=== PATIENT | male | born 1955 | race Two or more races ===

== ENCOUNTER 2024-04-19 17:23 | Inpatient (IN) | payer MEDICARE ==
[~2024-04-19] VITALS: Ht 170.2 cm; Wt 61.0 kg
--- NOTE | 2024-04-19 17:26 | NUR ---
[id number] FROM HOME FOR ALTERED MENTAL STATUS. PER FAMILY, PATIENT ALREADY NOT FEELING WELL YESTERDAY AND HAS COUGH, THIS AFTERNOON, WHEN FAMILY CHECKED, PATIENT WAS AWAKE BUT NOT RESPONDING TO QUESTIONS AND WAS HOT TO TOUCH. TO ER BED 8, HOOKED TO SPECIALTY FOOD PRODUCTS SUPERVISOR, NOTED SINUS TACHY, PATIENT AAOx0, EYES OPEN BUT NOT ANSWERING WHEN SPOKEN TO. CHANGED TO HOSP GOWN, COOLING MEASURES DONE. NOTED W RAC 20G IV PERPHERAL LINE, PATENT. DR HUYNH AT BEDSIDE
--- NOTE | 2024-04-19 17:28 | NUR ---
CALLED CODE SEPSIS
[2024-04-19] MEDS ORDERED: ACETAMINOPHEN 650 MG/SUPP.RECT RC ONE (17:31)
[2024-04-19] MEDS ORDERED: KETOROLAC TROMETHAMINE 15 MG/ML VIAL ONE (17:35)
[2024-04-19] MEDS: PIPERACILLIN /TAZOBACTAM 3.375 G in IV D5W 50 ML IV ONE (17:40)
[2024-04-19] MEDS: IV NS 0.9% 1,000 ML BAG IV ONE ×2 (17:40→20:00)
[2024-04-19 17:42] LABS: BASOPHILS # (AUTO) 0.1 K/uL (0.0-0.2); BASOPHILS % (AUTO) 0.7 % (0.0-2.0); EOSINOPHILS % (AUTO) 0.5 % (0.0-6.0); HEMATOCRIT 43 % (39-51); HEMOGLOBIN 14.5 g/dL (13.5-17.5); LYMPHOCYTES # (AUTO) 2.3 K/uL (0.8-4.8); LYMPHOCYTES % (AUTO) 29.8 % (20.0-44.0); MEAN CORPUSCULAR HEMOGLOBIN 30 PG (26.0-33.0); MEAN CORPUSCULAR HGB CONC 33 g/dl (31.0-36.0); MEAN CORPUSCULAR VOLUME 89 fL (80-96); MONOCYTES % (AUTO) 13.1 % (2.0-12.0); NEUTROPHILS # (AUTO) 4.3 K/uL (1.8-8.9); NEUTROPHILS % (AUTO) 55.9 % (43.0-81.0); PLATELET COUNT (AUTO) 144 K/uL (150-450); RED BLOOD CELL COUNT(AUTO) 4.84 MIL/uL (4.5-6.0); RED CELL DISTRIBUTION WIDTH 13.3 % (11.5-15.0); WHITE BLOOD COUNT (AUTO) 7.7 K/uL (4.3-11.0)
[2024-04-19] MEDS: ACETAMINOPHEN 650 MG/SUPP.RECT RC ONE (17:42)
[2024-04-19] MEDS: KETOROLAC TROMETHAMINE 15 MG/ML VIAL IV ONE (17:44)
--- NOTE | 2024-04-19 17:44 | NUR ---
EKG obtained at 1731.
--- NOTE | 2024-04-19 17:48 | NUR ---
MOVE SHEET SUBMITTED & CALLED FOR BED.
[2024-04-19 17:55] LABS: CALCIUM, SERUM 9.1 mg/dL (8.5-10.1); CARBON DIOXIDE 29 mmol/L (21-32); CHLORIDE 99 mmol/L (98-107); CREATININE 1.6 mg/dL (0.6-1.3); GLUCOSE 90 mg/dL (74-106); INR 1.2 (0.91-1.10); PARTIAL THROMBOPLASTIN TIME 26.2 SEC (24.3-34.3); POTASSIUM 4.2 mmol/L (3.5-5.1); PROTHROMBIN TIME 12.6 SECS (9.2-11.1); SODIUM SERUM 136 mmol/L (136-145); UREA NITROGEN, BLOOD 15 mg/dL (7-18)
[2024-04-19 18:02] LABS: ALANINE AMINOTRANSFERASE 18 U/L (12-78); ALBUMIN 3.8 g/dL (3.4-5.0); ALKALINE PHOSPHATASE 69 U/L (46-116); ASPARTATE AMINOTRANSFERASE 16 U/L (15-37); BILIRUBIN,DIRECT 0.1 mg/dL (0.0-0.2); BILIRUBIN,TOTAL 0.6 mg/dL (0.2-1.0); TOTAL PROTEIN, SERUM 7.3 g/dL (6.4-8.2)
--- NOTE | 2024-04-19 18:03 | NUR ---
PERSON TO CONTACT: [phone] (OCT-OCT)
--- NOTE | 2024-04-19 18:07 | NUR ---
urine collected and sent to the lab
[2024-04-19 18:13] LABS: LACTIC ACID 1.9 mmol/L (0.4-2.0)
--- NOTE | 2024-04-19 18:20 | NUR ---
DR HUYNH IN ROOM SPEAKING TO FAMILY
[2024-04-19] MEDS: VANCOMYCIN 1 GM in IV D5W 250 ML IV ONE (18:30)
[2024-04-19] MEDS ORDERED: HYDROCORTISONE SOD SUCCINATE 100 MG/2 ML VIAL ONE (18:39)
[2024-04-19] MEDS: HYDROCORTISONE SOD SUCCINATE 100 MG/2 ML VIAL IV ONE (18:45)
[2024-04-19] MEDS ORDERED: ROSU10TA2 PO (18:46)
[2024-04-19] MEDS ORDERED: HYDR5TAB13 PO (18:46)
--- NOTE | 2024-04-19 18:47 | NUR ---
WHEELED OUT VIA RNEY FOR CT SCAN
--- NOTE | 2024-04-19 19:25 | NUR ---
PATIENT AWAKE IN BED, ABLE TO ANSWER QUESTIONS. AAOx3. HOOKED TO MONITOR, WILL CONTINUE TO MONITOR ACCORDINGLY. ENDORSED TO REG RN
[2024-04-19 20:28] LABS: APPEARANCE,URINE CLEAR (CLEAR); BILIRUBIN,URINE NEGATIVE (NEGATIVE); BLOOD, URINE 2+ Ery/uL (NEGATIVE); COLOR,URINE YELLOW (YELLOW); KETONES,URINE NEGATIVE (NEGATIVE); LEUKOCYTE ESTERASE ,URINE NEGATIVE (NEGATIVE); NITRITE, URINE NEGATIVE (NEGATIVE); PROTEIN,URINE NEGATIVE (NEGATIVE); UGLUCOSE NEGATIVE (NEGATIVE); UROBILINOGEN,URINE 0.2 EU/dL (0.2)
[2024-04-19 20:33] LABS: RBC,URINE 21-50 /HPF (0-2); WBC,URINE 0-2 /HPF (0-3)
[2024-04-19 20:34] LABS: ADD URINE CULTURE NO; BACTERIA,URINE None seen /HPF (None Seen); SPERM,URINE Few /HPF (None Seen)
--- NOTE | 2024-04-19 21:25 | NUR ---
MRSA swab taken at 2123.
[2024-04-19] MEDS ORDERED: ONDANSETRON HCL/PF 4 MG/2 ML VIAL IVP PRN (21:30)
[2024-04-19] MEDS ORDERED: Z GUARD REMEDY 4 OZ OINT TP PRN (21:30)
[2024-04-19] MEDS ORDERED: ACETAMINOPHEN 325 MG TABLET PO PRN (21:30)
[2024-04-19] MEDS ORDERED: MAGNESIUM HYDROXIDE 30 ML UDC PO PRN (21:30)
[2024-04-19] MEDS ORDERED: MAG HYDROX/AL HYDROX/SIMETH 30 ML UDC PO PRN (21:30)
[2024-04-19] MEDS ORDERED: NOREPINEPHRINE 8MG/250ML RTU 250 ML IV ONE (21:45)
[2024-04-19] MEDS: NOREPINEPHRINE 8 MG in IV D5W 242 ML IV PRN (22:07)
--- NOTE | 2024-04-19 22:58 | NUR ---
REPORT GIVEN TO JENNY DANG ICU FOR CARMEN
--- NOTE | 2024-04-19 23:15 | NUR ---
transferred patient to ICU room 257
[2024-04-19 23:23] VITALS: BP 137/74; O2SAT 97
[2024-04-19 23:31] VITALS: BP 128/52; O2SAT 96
[2024-04-19 23:32] VITALS: BP 137/74; TEMP 97.2; O2SAT 97
[2024-04-19 23:45] VITALS: BP 102/55; O2SAT 99
--- NOTE | 2024-04-19 23:45 | NUR ---
INVENTORY ASSOCIATE AND DRIVERvariety saw operator Note Admitted this patient from ED via [facility] with dx of Sepsis, Gastroenteritis/Enterocolitis. Patient is awake, a/o x 4. On room air; tolerating well saturating 98%. Afebrile. Breathing adeqaute and nonlabored. With IV access on RAC 20g; patent and intact running with Levophed (32mcg/ml) at 0.2 mcg/kg/min; will titrate per protocol. SR on the surveillance sensor operator. Initial admission assessment done. Placed on contact isolation. Safety precautions initiated: HOB elevated >30 degrees, SR up x 2, bed in lowest locked position. Plan of care to continue.
[2024-04-19] MEDS: IV NS 0.9% 1,000 ML IV SCH (23:50)
[2024-04-19] MEDS ORDERED: PIPERACI/TAZO 3.375GM/D5W 50ML PB IV ONE (23:58)
[2024-04-20] VITALS (86 sets, daily range): BP systolic 78–157; BP diastolic 45–106; TEMP 97.2–98.1; O2SAT 93–100
[2024-04-20] MEDS ORDERED: PIPERACILLIN /TAZOBACTAM 3.375 G in IV D5W 50 ML IV SCH
[2024-04-20] MEDS: PIPERACILLIN /TAZOBACTAM 3.375 G in IV D5W 250 ML IV SCH (00:15)
[2024-04-20] MEDS ORDERED: IV NS 0.9% 250 ML IV PRN (00:30)
[2024-04-20] MEDS ORDERED: PIPERACI/TAZO 3.375GM/D5W 50ML PB IV ONE (04:26)
[2024-04-20 04:56] LABS: BASOPHILS % (AUTO) 0.3 % (0.0-2.0); HEMATOCRIT 42 % (39-51); HEMOGLOBIN 14.3 g/dL (13.5-17.5); LYMPHOCYTES # (AUTO) 0.9 K/uL (0.8-4.8); LYMPHOCYTES % (AUTO) 12.6 % (20.0-44.0); MEAN CORPUSCULAR HEMOGLOBIN 31 PG (26.0-33.0); MEAN CORPUSCULAR HGB CONC 34 g/dl (31.0-36.0); MEAN CORPUSCULAR VOLUME 90 fL (80-96); MONOCYTES # (AUTO) 0.4 K/uL (0.1-1.30); MONOCYTES % (AUTO) 5.2 % (2.0-12.0); NEUTROPHILS # (AUTO) 6.1 K/uL (1.8-8.9); NEUTROPHILS % (AUTO) 81.9 % (43.0-81.0); PLATELET COUNT (AUTO) 151 K/uL (150-450); RED CELL DISTRIBUTION WIDTH 13.2 % (11.5-15.0); WHITE BLOOD COUNT (AUTO) 7.5 K/uL (4.3-11.0)
[2024-04-20 05:06] LABS: CALCIUM, SERUM 8.2 mg/dL (8.5-10.1); CREATININE 1.3 mg/dL (0.6-1.3); MAGNESIUM 1.8 mg/dL (1.8-2.4); PHOSPHORUS 2.3 mg/dL (2.5-4.9); POTASSIUM 4.1 mmol/L (3.5-5.1)
--- NOTE | 2024-04-20 06:23 | NUR ---
RN Note Patient verbalized he's taking 17.5 mg of Hydrocortisone daily. Monty Joiner NP notified and made aware of patient's concern; with order to follow the dosage and timing that the patient have previously taking at home. Patient dosage is Hydrocortisone oral 10mg 6am, 5mg 11am and 2.5mg 4pm.
--- NOTE | 2024-04-20 07:20 | NUR ---
BLEACH CHLORINATOR Closing Note Patient in bed; awake, a/o x 4. Stable on room air. SR on the monitor. On vasopressor, Levophed at 0.06 mcg/kg/min. All due meds given as ordered. Contact and safety precautions maintained. Endorsed to ALTON Moreno for gela.
[2024-04-20] MEDS: VANCOMYCIN 750 MG in IV D5W 250 ML IV SCH (08:20)
[2024-04-20] MEDS: NOREPINEPHRINE 8 MG in IV D5W 242 ML IV PRN (08:20)
[2024-04-20] MEDS: ATORVASTATIN 40 MG TABLET PO SCH (08:27)
[2024-04-20] MEDS: HYDROCORTISONE 5 MG TABLET PO SCH ×3 (08:27→16:29)
[2024-04-20] MEDS: PANTOPRAZOLE 40 MG VIAL IV SCH (08:27)
--- NOTE | 2024-04-20 08:57 | NUR ---
ECHO TEST ONGOING, HR 40s to 70s for 2-3secs, BAILEY AWARE. PATIENT STABLE. WILL CONT. TO MONITOR
[2024-04-20] MEDS ORDERED: HYDROCORTISONE 5 MG TABLET PO SCH (09:00)
--- NOTE | 2024-04-20 09:40 | NUR ---
RN NOTES LEFT ARM ULTRASOUND PERFORMED TO IDENTIFY ADEQUATE VEIN FOR MIDLINE INSERTION. LEFT ARM PREPPED USING STERILE TECHNIQUE. POWERGLIDE 18G/10CM WAS INSERTED AT LEFT BASILIC VEIN WITH EASE, GOOD NON PULSATILE BLOOD RETURN AND SECURED WITH INTERLOCK DEVICE. DRESSED USING NORMAL STERILE FASHION. EACH PORT WAS ASPIRATED WITH VENOUS BLOOD AND EACH PORT WAS FLUSHED WITH 10ML OF NORMAL SALINE. PROCEDURE WELL TOLERATED BY THE PT. SUPERVISED BY DR.EM KILGORE PhD. ENDORSED TO BEDSIDE RN.
--- NOTE | 2024-04-20 10:52 | NUR ---
PER LAB STAFF-LULYSY "PREVIOUS STOOL FROM CORDUROY CUTTER OPERATOR INSUFFICIENT"; WILL COLLECT FOR ANY NEXT BM , ADITI-CHANTELL HIGGINS.
[2024-04-20] MEDS: PIPERACILLIN /TAZOBACTAM 3.375 G in IV D5W 100 ML IV SCH (11:11)
--- NOTE | 2024-04-20 12:33 | NUR ---
GARY HE AT BEDSIDE AWARE OF BM EPISODES.NO NEW ORDER MADE
[2024-04-20] MEDS: K PHOS NEUTRAL 250 MG TABLET PO ONE (16:29)
[2024-04-20] MEDS: ENSURE CLEAR 237 ML LIQUID (MIX BERRY) PO SCH (17:00)
[2024-04-20 17:05] LABS: CREATININE, URINE 32.2 MG/DL (30.0-125.0)
[2024-04-20 17:24] LABS: APPEARANCE,URINE CLEAR (CLEAR); BILIRUBIN,URINE NEGATIVE (NEGATIVE); BLOOD, URINE 1+ Ery/uL (NEGATIVE); COLOR,URINE YELLOW (YELLOW); KETONES,URINE NEGATIVE (NEGATIVE); LEUKOCYTE ESTERASE ,URINE NEGATIVE (NEGATIVE); NITRITE, URINE NEGATIVE (NEGATIVE); PROTEIN,URINE NEGATIVE (NEGATIVE); UGLUCOSE NEGATIVE (NEGATIVE)
--- NOTE | 2024-04-20 19:02 | NUR ---
ENDORSED TO ALTON LARA FOR CONT OF CARE
[2024-04-20 19:08] LABS: ADD URINE CULTURE NO; BACTERIA,URINE RARE /HPF (None Seen); MUCUS,URINE Few /LPF (None Seen); WBC,URINE 0-2 /HPF (0-3)
--- NOTE | 2024-04-20 19:30 | NUR ---
Norma Santizo PHARMACY BENEFIT MANAGER at bedside. Recommends to discontinue vancomycin; patient refused the IV antibiotics.
[2024-04-20 19:42] LABS: EOSINOPHIL,URINE None Seen
[2024-04-21] VITALS (36 sets, daily range): BP systolic 93–122; BP diastolic 31–84; TEMP 98–98.6; O2SAT 93–100
[2024-04-21 04:10] LABS: BASOPHILS % (AUTO) 0.3 % (0.0-2.0); HEMATOCRIT 32 % (39-51); HEMOGLOBIN 11.2 g/dL (13.5-17.5); LYMPHOCYTES # (AUTO) 1.4 K/uL (0.8-4.8); LYMPHOCYTES % (AUTO) 20.1 % (20.0-44.0); MEAN CORPUSCULAR HEMOGLOBIN 30 PG (26.0-33.0); MEAN CORPUSCULAR HGB CONC 35 g/dl (31.0-36.0); MEAN CORPUSCULAR VOLUME 88 fL (80-96); MONOCYTES # (AUTO) 0.6 K/uL (0.1-1.30); MONOCYTES % (AUTO) 8.6 % (2.0-12.0); NEUTROPHILS # (AUTO) 4.8 K/uL (1.8-8.9); PLATELET COUNT (AUTO) 119 K/uL (150-450); RED BLOOD CELL COUNT(AUTO) 3.68 MIL/uL (4.5-6.0); RED CELL DISTRIBUTION WIDTH 13.4 % (11.5-15.0); WHITE BLOOD COUNT (AUTO) 6.8 K/uL (4.3-11.0)
[2024-04-21] MEDS: HYDROCORTISONE 5 MG TABLET PO SCH (06:48)
[2024-04-21 06:55] LABS: CALCIUM, SERUM 7.5 mg/dL (8.5-10.1); POTASSIUM 2.9 mmol/L (3.5-5.1)
[2024-04-21 06:56] LABS: ALBUMIN 2.7 g/dL (3.4-5.0); BILIRUBIN,TOTAL 0.4 mg/dL (0.2-1.0); CREATININE 0.9 mg/dL (0.6-1.3); MAGNESIUM 1.6 mg/dL (1.8-2.4); PHOSPHORUS 2.4 mg/dL (2.5-4.9); TOTAL PROTEIN, SERUM 5.4 g/dL (6.4-8.2)
[2024-04-21] MEDS: PANTOPRAZOLE 40 MG TABLET.DR PO SCH (08:26)
[2024-04-21] MEDS: POTASSIUM CHLORIDE 20 MEQ POWDER PACKET PO SCH (08:26)
[2024-04-21] MEDS: IV NS 0.9% 1,000 ML IV PRN (09:47)
[2024-04-21] MEDS: NEUTRA PHOS 1 POWD.PACKET PO ONE (09:49)
[2024-04-21] MEDS: MAGNESIUM OXIDE 400 MG TABLET PO SCH (09:49)
[2024-04-21] MEDS ORDERED: POTASSIUM PHOSPHATE MM 7.5 MMOL in IV NS 0.9% 100 ML IV SCH (11:00)
--- NOTE | 2024-04-21 14:05 | NUR ---
PATIENT DOWNGRADED TO [facility] 3RD FLOOR/ ROOM 329-1; PER DR ORDER. TRANSFERRED SAFELY PER ACLS PROTOCOL, TAKEN BY WHEELCHAIR; PT ALERT/ ORIENTED X 4, ON RA, AMBULATORY, AFEBRILE, NOT IN DISTRESS OR PAIN. BEDSIDE REPORT GIVEN PER PROTOCOL.
--- NOTE | 2024-04-21 14:55 | NUR ---
[facility] NOTIFIED OF PT TRANSFER OUT OF ICU TO MED/SURG ROOM 329-1. SPOKE TO [facility] AT [phone] OPTION 3.
--- NOTE | 2024-04-21 15:30 | NUR ---
RN OPENING NOTES RECEIVED PATIENT FROM ICU. A/O X4.ABLE TO MAKE NEEDS KNOWN. NO COMPLAINS OF ANY PAIN OR DISCOMFORT AT THIS TIME, ON ROOM AIR SATURATING WELL, IV LINE ON BONNIE ML G18, RFA G20 NS AT 100ML, REMINDED PATIENT TO USE THE CALL LIGHTS WHEN NEEDED ASSISTANCE. FALL AND SAFETY MEASURES MAINTAINED: BED LOCKED AND IN LOWEST POSITION, HOB ELEVATED, BED ALARM ON.CALL LIGHT AND TABLE WITHIN EASY REACH, SIDE RAILS UP X 2, PLAN OF CARE ONGOING
--- NOTE | 2024-04-21 18:33 | NUR ---
RN CLOSING NOTES PATIENT AWAKE FROM BED. A/O X4.ABLE TO MAKE NEEDS KNOWN. NO COMPLAINS OF ANY PAIN OR DISCOMFORT AT THIS TIME, ON ROOM AIR SATURATING WELL, IV LINE ON BONNIE ML G18, RFA G20 NS AT 100ML, REMINDED PATIENT TO USE THE CALL LIGHTS WHEN NEEDED ASSISTANCE. FALL AND SAFETY MEASURES MAINTAINED: BED LOCKED AND IN LOWEST POSITION, HOB ELEVATED, BED ALARM ON.CALL LIGHT AND TABLE WITHIN EASY REACH, SIDE RAILS UP X 2, PLAN OF CARE ONGOING.KEPT PATIENT WARM AND COMFORTABLE.ALL NEEDS ATTENDED.
--- NOTE | 2024-04-21 19:00 | NUR ---
RN NOTES: RECEIVED PATIENT AWAKE FROM BED. A/O X4. ABLE TO MAKE NEEDS KNOWN. NO COMPLAINS OF ANY PAIN OR DISCOMFORT AT THIS TIME, ON ROOM AIR TOLERATING WELL, IV LINE ON BONNIE ML G18, RFA G20 NS AT 100ML, REMINDED PATIENT TO USE THE CALL LIGHTS WHEN NEEDED ASSISTANCE. FALL AND SAFETY MEASURES PROVIDED: BED LOCKED AND IN LOWEST POSITION, HOB ELEVATED, BED ALARM ON. CALL LIGHT AND TABLE WITHIN EASY REACH, SIDE RAILS UP X 2, WILL CONTINUE TO MONITOR.
--- NOTE | 2024-04-21 21:00 | NUR ---
HISTORIC SITES SUPERVISOR NOTES Spoke to Sean and informed her that patient was telling me that he's been refusing the Vancomycin since yesterday and he already spoke to you. Per Norma pt's doesn't need to be on Vanco.. Got an order to discontinue the Vanco. order noted and carried out
--- NOTE | 2024-04-22 06:40 | NUR ---
RN CLOSING NOTES PATIENT ASLEEP ON BED. A/O X4. EASILY AROUSED. ABLE TO MAKE NEEDS KNOWN. NO COMPLAINS OF ANY PAIN OR DISCOMFORT AT THIS TIME, ON ROOM AIR TOLERATING WELL, WITH PATENT IV ON RFA G20, BONNIE MIDLINE G18 WITH RUNNING NS AT 100ML/HR. REMINDED PATIENT TO USE THE CALL LIGHTS WHEN NEEDING ASSISTANCE. ALL DUE MEDICATIONS GIVEN. KEPT CLEAN AND COMFORTABLE. FALL AND SAFETY MEASURES PROVIDED: BED LOCKED AND IN LOWEST POSITION, HOB ELEVATED, BED ALARM ON. CALL LIGHT AND TABLE WITHIN EASY REACH, SIDE RAILS UP X 2, WILL ENDORSE TO NEXT SHIFT FOR FURTHER CARE
[2024-04-22 06:51] LABS: BASOPHILS % (AUTO) 0.6 % (0.0-2.0); EOSINOPHILS % (AUTO) 0.1 % (0.0-6.0); HEMATOCRIT 33 % (39-51); LYMPHOCYTES # (AUTO) 1.5 K/uL (0.8-4.8); LYMPHOCYTES % (AUTO) 31.1 % (20.0-44.0); MEAN CORPUSCULAR HEMOGLOBIN 30 PG (26.0-33.0); MEAN CORPUSCULAR HGB CONC 34 g/dl (31.0-36.0); MEAN CORPUSCULAR VOLUME 89 fL (80-96); MONOCYTES # (AUTO) 0.3 K/uL (0.1-1.30); MONOCYTES % (AUTO) 6.9 % (2.0-12.0); NEUTROPHILS % (AUTO) 61.3 % (43.0-81.0); PLATELET COUNT (AUTO) 111 K/uL (150-450); RED BLOOD CELL COUNT(AUTO) 3.69 MIL/uL (4.5-6.0); RED CELL DISTRIBUTION WIDTH 13.4 % (11.5-15.0)
--- NOTE | 2024-04-22 07:09 | NUR ---
MS RN OPENING NOTES RECEIVED PATIENT IN BED, AWAKE AND WATCHING TV. A/O X4. ABLE TO MAKE NEEDS KNOWN. ON ROOM AIR, TOLERATING WELL. NO SOB, BREATHING EVEN AND UNLABORED. WITH IV ACCESSES ON RIGHT FOREARM #20G-SALINE LOCKED AND LEFT UPPER ARM MIDLINE INFUSING WELL WITH NORMAL SALINE AT 100CC/HOUR; INTACT AND PATENT. PATIENT IS BRP. PATIENT IS OFF ISOLATION PRECAUTION(NEGATIVE CDIFF). PATIENT DENIES PAIN AT THIS TIME. SAFETY MEASURES IN PLACE. BED IN LOW AND LOCKED POSITION. CALL LIGHT AND TABLE WITHIN EASY REACH. SIDE RAILS UP X2. WILL CONTINUE WITH PLAN OF CARE.
[2024-04-22 07:27] LABS: CALCIUM, SERUM 8.1 mg/dL (8.5-10.1); CREATININE 0.9 mg/dL (0.6-1.3); MAGNESIUM 1.8 mg/dL (1.8-2.4); PHOSPHORUS 2.3 mg/dL (2.5-4.9); POTASSIUM 3.1 mmol/L (3.5-5.1)
[2024-04-22] MEDS: POTASSIUM CHLORIDE 20 MEQ TAB.PRT.SR PO ONE (08:21)
[2024-04-22 08:23] VITALS: BP 105/66; TEMP 99.3; O2SAT 97
[2024-04-22] MEDS: K PHOS NEUTRAL 250 MG TABLET PO ONE (16:07)
[2024-04-22 16:23] VITALS: BP 115/67; TEMP 98.4; O2SAT 97
--- NOTE | 2024-04-22 19:09 | NUR ---
MS RN CLOSING NOTES PATIENT IN BED, AWAKE AND WATCHING TV.WITH BROTHER AT BEDSIDE. A/O X4. WAS ABLE TO MAKE NEEDS KNOWN. ON ROOM AIR, TOLERATED WELL. NO SOB, BREATHING EVEN AND UNLABORED. WITH IV ACCESSES ON RIGHT FOREARM #20G-SALINE LOCKED AND LEFT UPPER ARM MIDLINE INFUSING WELL WITH NORMAL SALINE AT 100CC/HOUR; INTACT AND PATENT. PATIENT IS BRP. PATIENT IS OFF ISOLATION PRECAUTION(NEGATIVE CDIFF). PATIENT DENIES PAIN AT THIS TIME. DUE MEDS GIVEN. NURSING CARE RENDERED. SAFETY MEASURES IMPLEMENTED. BED IN LOW AND LOCKED POSITION. CALL LIGHT AND TABLE WITHIN EASY REACH. SIDE RAILS UP X2. ENDORSED TO CIGAR TOBACCO PROCESSING SUPERVISOR NURSE FOR CONTINUITY OF CARE.
--- NOTE | 2024-04-22 19:50 | NUR ---
RN OPENING NOTE RECEIVED PATIENT IN BED, WITH FAMILY MEMBERS AT BEDSIDE. PT A/O X4, ABLE TO MAKE NEEDS KNOWN. NO COMPLAINS OF ANY PAIN OR DISCOMFORT AT THIS TIME. ON ROOM AIR, SATURATING WELL, IV LINE TO LEFT UA MIDLINE #G18, AND IV TO RIGHT FA #G20 WITH NS RUNNING AT 100 ML/HR. FALL AND SAFETY MEASURES MAINTAINED. BED LOCKED AND IN LOWEST POSITION, HOB ELEVATED, BED ALARM ON. CALL LIGHT AND TABLE WITHIN REACH, SIDE RAILS UP X 2. PLAN OF CARE ONGOING.
[2024-04-22 20:00] VITALS: BP 112/58; TEMP 97.7; O2SAT 97
--- NOTE | 2024-04-23 00:20 | NUR ---
RN NOTE COVID 19 TEST COMPLETED, AND RETURNED TO LAB.
--- NOTE | 2024-04-23 01:27 | NUR ---
RN NOTE LAB CALLED TO INFORM THAT PT IS COVID POSITIVE. CHARGE NURSE MADE AWARE. PT WILL BE TRANSFERRED TO [facility] IN ROOM 105.
--- NOTE | 2024-04-23 02:00 | NUR ---
RN NOTE PT IS TRANSFERRED TO [facility] IN ROOM 105. PT IN STABLE CONDITION. NO DISTRESS NOTED, NO C/O PAIN. REPORT GIVEN TO NURSE JOHNSON FOR CONTINUITY OF CARE.
--- NOTE | 2024-04-23 02:02 | NUR ---
RN NOTES RECEIVED PATIENT FROM [facility] VIA [facility]. REPORT GIVEN BY ALTON FORD. PATIENT WAS TRANSFERRED D/T PATIENT BEING POSITIVE FROM COVID. PATIENT IS A/O X 4, ABLE TO MAKE NEEDS KNOWN. ON ROOM AIR, SATURATING WELL. RESPIRATION IS EVEN AND UNLABORED. PATIENT HAS AN IV ACCESS ON RIGHT FOREARM #20G AND LEFT UPPER MIDLINE. ON COVID ISOLATION - PRECAUTIONS IMPLEMENTED. NO COMPLAINS OF PAIN OR DISCOMFORT NOTED. PATIENT WAS ORIENTED TO ROOM AND HOW TO USE THE CALL LIGHT. BELONGINGS ACCOUNTED FOR. SAFETY MEASURES IN PLACE. CALL LIGHT WITHIN REACH.
--- NOTE | 2024-04-23 07:00 | NUR ---
ENVIRONMENTAL MAINTENANCE WORKER MS OPENING NOTE RECEIVED PATIENT AWAKE, ALERT, AND ORIENTED X3, ON ROOM AIR= O2 SAT=98%, NO S/S OF RESPIRATORY DISTRESS NOTED. PATIENT DENIES PAIN , DENIES COUGH. AFEBRILE AT PRESENT. PATIENT STATED" I DO NOT HAVE DIARRHEA RIGHT NOW, SINCE I STARTED EATING REGULAR DIET"/ PATIENT IS AMBULATORY, STEADY GAIT NOTED. IV ACCESS TO BONNIE MIDLINE INTACT RUNNING NS AT 100ML/HR. RFA #2OG SL INTACT. WILL CONTINUE TO MONITOR. PATIENT IS IN COVID-19 POSITIVE ISOLATION.
--- NOTE | 2024-04-23 07:01 | NUR ---
RN CLOSING NOTES PATIENT IS A/O X 4, ABLE TO MAKE NEEDS KNOWN. ON ROOM AIR, SATURATING WELL. RESPIRATION IS EVEN AND UNLABORED. ON COVID ISOLATION - PRECAUTIONS MAINTAINED. PATIENT HAS AN IV ACCESS ON RIGHT FOREARM #20G AND LEFT UPPER MIDLINE WITH NS @ 100 MLS./HR, INFUSING WELL. NO COMPLAINS OF PAIN OR DISCOMFORT NOTED. ASSISTED PATIENT WITH NEEDS. SAFETY MEASURES IN PLACE. CALL LIGHT WITHIN REACH. WILL ENDORSE TO AM NURSE FOR CONTINUITY OF CARE.
[2024-04-23 07:07] LABS: PTH, INTACT 49 pg/mL (15-65)
--- NOTE | 2024-04-23 08:45 | NUR ---
INVENTORY CONTROL COORDINATOR MS MEDICATION NOTE PATIENT TOOK HIS OWN CORTEF DOSE AT 0600 AM INSTEAD TO WAIT FOR THE NURSE TO ADMINISTERED AT 0900 AM. MEDICATION NOT GIVEN AND RETURNED TO PHARMACY.
[2024-04-23 11:07] LABS: BASOPHILS % (AUTO) 0.5 % (0.0-2.0); EOSINOPHILS % (AUTO) 0.1 % (0.0-6.0); HEMATOCRIT 37 % (39-51); HEMOGLOBIN 12.1 g/dL (13.5-17.5); LYMPHOCYTES # (AUTO) 1.1 K/uL (0.8-4.8); LYMPHOCYTES % (AUTO) 26.3 % (20.0-44.0); MEAN CORPUSCULAR HEMOGLOBIN 30 PG (26.0-33.0); MEAN CORPUSCULAR HGB CONC 33 g/dl (31.0-36.0); MEAN CORPUSCULAR VOLUME 90 fL (80-96); MONOCYTES # (AUTO) 0.4 K/uL (0.1-1.30); MONOCYTES % (AUTO) 9.4 % (2.0-12.0); NEUTROPHILS # (AUTO) 2.6 K/uL (1.8-8.9); NEUTROPHILS % (AUTO) 63.7 % (43.0-81.0); PLATELET COUNT (AUTO) 120 K/uL (150-450); RED BLOOD CELL COUNT(AUTO) 4.09 MIL/uL (4.5-6.0); RED CELL DISTRIBUTION WIDTH 13.6 % (11.5-15.0); WHITE BLOOD COUNT (AUTO) 4.2 K/uL (4.3-11.0)
[2024-04-23] MEDS ORDERED: LEVO500T90 PO (11:12)
[2024-04-23] MEDS ORDERED: PANT40TA49 PO (11:12)
[2024-04-23] MEDS ORDERED: METR500T PO (11:12)
[2024-04-23 11:22] LABS: BILIRUBIN,TOTAL 0.4 mg/dL (0.2-1.0); CALCIUM, SERUM 8.9 mg/dL (8.5-10.1); CREATININE 0.8 mg/dL (0.6-1.3); MAGNESIUM 1.9 mg/dL (1.8-2.4); PHOSPHORUS 2.6 mg/dL (2.5-4.9); POTASSIUM 3.1 mmol/L (3.5-5.1); TOTAL PROTEIN, SERUM 6.2 g/dL (6.4-8.2)
[2024-04-23] MEDS: POTASSIUM CHLORIDE 20 MEQ TAB.PRT.SR PO SCH (12:31)
--- NOTE | 2024-04-23 15:30 | NUR ---
WASHING MACHINE OPERATOR DISCHARGE NOTE THE DOCTOR CLEARED PATIENT FOR DISCHARGE. PATIENT DOES NOT HAVE DIARRHEA ALL DAY. DISCHARGE INSTRUCTIONS GIVEN TO PATIENT, INCLUDING TO BOAT FUELER ANTIBIOTICS AT HIS PHARMACY, LEVOFLOXACIN/FLAGYL AND PROTONIC. PATIENT VERBALIZED UNDERSTANDING INSTRUCTIONS, PATIENT SIGNED DISCHARGE FORMS AND BELONGINGS FORMS. BELONGING RETURNED TO PATIENT. IV ACCESS TO BONNIE MIDLINE AND RFA SL REMOVED, CATHETER TIP INTACT, NO S/S OF INFILTRATION NOTED. PRESSURE DRESSING APPLIED TO IV SITE. PATIENT DISCHARGED VIA AMBULATORY, ACCOMPANIED BY STAFF NURSE. PATIENT HAS HIS PRIVATE TRANSPORTATION. B/P-116/76 HR=69 TEMP=98.6 REST=18
[2024-04-24 05:08] LABS: *SPE A/G RATIO 1.2 (0.7-1.7); *SPE ALBUMIN 2.7 g/dL (2.9-4.4); *SPE ALPHA-1-GLOBULIN 0.2 g/dL (0.0-0.4); *SPE ALPHA-2-GLOBULIN 0.6 g/dL (0.4-1.0); *SPE BETA GLOBULIN 0.7 g/dL (0.7-1.3); *SPE GLOBULIN, TOTAL 2.3 g/dL (2.2-3.9); *SPE M-SPIKE Not Observed g/dL (Not Observed); *SPEGAMMA GLOBULIN 0.7 g/dL (0.4-1.8)
== END 2024-04-23 17:50 | disposition home or self-care (01) | DRG 391 ==
LOC: ER 17:49 → TELE1 20:48 → ICU 22:14 → MED 04-21 14:13 → TELE-TD 04-23 01:31 → MEDSG1 04-23 02:09
PROVIDERS: ATTEND Nurse Practitioner Acute Care
DX: A08.4 Viral intestinal infection, unspecified (principal); G93.41 Metabolic encephalopathy; U07.1 COVID-19; E27.40 Unspecified adrenocortical insufficiency; E24.9 Cushing's syndrome, unspecified; E44.0 Moderate protein-calorie malnutrition; N17.9 Acute kidney failure, unspecified; G90.8 Other disorders of autonomic nervous system; D69.6 Thrombocytopenia, unspecified; E78.5 Hyperlipidemia, unspecified; E88.09 Other disorders of plasma-protein metabolism, not elsewhere classified; I10 Essential (primary) hypertension; Z79.52 Long term (current) use of systemic steroids; Z87.442 Personal history of urinary calculi; I95.9 Hypotension, unspecified; Z68.21 Body mass index [BMI] 21.0-21.9, adult; Z86.69 Personal history of other diseases of the nervous system and sense organs; N13.9 Obstructive and reflux uropathy, unspecified
CPT/HCPCS: 36415; 70450-TC; 71045-TC; 76770-TC; 80048-TC; 80053-TC; 80076-TC; 80202-TC; 81001; 82550-TC; 82570-TC; 83605-TC; 83735-TC; 83970; 84100-TC; 84155; 84165; 84300-TC; 84484-TC; 85025-TC; 85378-TC; 85730-TC; 86140-TC; 87040-TC; 87081-TC; 87086-TC; 87177; 87209; 89055; 93307-TC; 97116-TC; 97530-TC; A4223; G0378; J1720; J1885; J2470; J2543; J3370; J3371; J3490; J7030; J7050; J7060